=== PATIENT | female | born 1970 | race Caucasian/White ===

== ENCOUNTER 2019-07-17 15:52 | Outpatient (CLI) | payer OTHER, SELFPAY ==
--- NOTE | ~2019-07-17 | MM_ITS ---
EXAMINATION: MM screening [facility] BI w true HISTORY: Screening mammogram TECHNIQUE: Craniocaudal and mediolateral oblique 3-D tomosynthesis images were obtained and synthetic 2-D images were generated. CAD analysis was submitted and interpreted. COMPARISON: 06/20/2018, 05/19/2017, 04/08/2016 BREAST PARENCHYMAL COMPOSITION: There are scattered areas of fibroglandular density. FINDINGS: There is no evidence of suspicious mass, calcification, or architectural distortion to sugg est malignancy in either breast. There has been no suspicious interval change. IMPRESSION: 1. No mammographic evidence of malignancy. 2. Recommend routine screening mammography in one year. BI-RADS Category 1: Negative Reviewed, dictated and finalized at location A. POLISHER
== END 2019-07-17 15:53 | disposition home or self-care (01) ==
LOC: ANHIMG 15:55
PROVIDERS: PCP Internal Medicine; Visit Provider Obstetrics & Gynecology Gynecology
DX: Z12.31 Encounter for screening mammogram for malignant neoplasm of breast (principal)
CPT/HCPCS: 77063; 77067

== ENCOUNTER 2020-08-24 07:57 | Outpatient (CLI) | payer OTHER, SELFPAY ==
--- NOTE | ~2020-08-24 | MM_ITS ---
EXAMINATION: MM screening [facility] BI w true HISTORY: Screening mammogram TECHNIQUE: Craniocaudal and mediolateral oblique 3-D tomosynthesis images were obtained and synthetic 2-D images were generated. CAD analysis was submitted and interpreted. COMPARISON: 05/16/2020, 06/20/2018, 05/19/2017 BREAST PARENCHYMAL COMPOSITION: There are scattered areas of fibroglandular density. FINDINGS: There is no evidence of suspicious mass, calcification, or architectural distortion to sugg est malignancy in either breast. There has been no suspicious interval change. IMPRESSION: 1. No mammographic evidence of malignancy. 2. Recommend routine screening mammography in one year. BI-RADS Category 1: Negative Reviewed, dictated and finalized at location A.
== END 2020-08-24 07:58 | disposition home or self-care (01) ==
LOC: ANHIMG 07:58
PROVIDERS: PCP Internal Medicine; Visit Provider Obstetrics & Gynecology Gynecology
DX: Z12.31 Encounter for screening mammogram for malignant neoplasm of breast (principal)
CPT/HCPCS: 77063; 77067

== ENCOUNTER 2021-10-12 16:23 | Outpatient (CLI) | payer OTHER, SELFPAY ==
--- NOTE | ~2021-10-12 | MM_ITS ---
EXAMINATION: MM screening [facility] BI w true HISTORY: Screening mammogram TECHNIQUE: Craniocaudal and mediolateral oblique 3-D tomosynthesis images were obtained and synthetic 2-D images were generated. CAD analysis was submitted and interpreted. COMPARISON: 08/24/2020, 07/17/2019 BREAST PARENCHYMAL COMPOSITION: There are scattered areas of fibroglandular density. FINDINGS: There is no suspicious mass, calcification, or architectural distortion to suggest malignan cy in either breast. There has been no suspicious interval change. IMPRESSION: 1. No mammographic evidence of malignancy. 2. Recommend routine screening mammography in one year. BI-RADS Category 1: Negative Reviewed, dictated and finalized at location A.
== END 2021-10-12 16:24 | disposition home or self-care (01) ==
PROVIDERS: PCP Internal Medicine; Visit Provider Obstetrics & Gynecology Gynecology
DX: Z12.31 Encounter for screening mammogram for malignant neoplasm of breast (principal)
CPT/HCPCS: 77063; 77067

== ENCOUNTER 2022-12-19 08:06 | Outpatient (CLI) | payer OTHER, SELFPAY ==
--- NOTE | ~2022-12-19 | MM_ITS ---
EXAMINATION: MM screening [facility] BI w true HISTORY: Screening mammogram TECHNIQUE: Craniocaudal and mediolateral oblique 3-D tomosynthesis images were obtained and synthetic 2-D images were generated. CAD analysis was submitted and interpreted. COMPARISON: 10/12/2021, 08/24/2020, 07/17/2019 BREAST PARENCHYMAL COMPOSITION: There are scattered areas of fibroglandular density. FINDINGS: No suspicious mass, calcification, or architectural distortion are identified in either myriam ast to suggest malignancy. There has been no suspicious interval change. IMPRESSION: 1. No mammographic evidence of malignancy. 2. Recommend routine screening mammography in one year. BI-RADS Category 1: Negative Reviewed, dictated and finalized at location A.
== END 2022-12-19 08:07 | disposition home or self-care (01) ==
PROVIDERS: PCP Internal Medicine; Visit Provider Obstetrics & Gynecology Gynecology
DX: Z12.31 Encounter for screening mammogram for malignant neoplasm of breast (principal)
CPT/HCPCS: 77063; 77067

== ENCOUNTER 2024-04-04 15:29 | Outpatient (CLI) | payer OTHER, SELFPAY ==
--- NOTE | ~2024-04-04 | MM_ITS ---
EXAMINATION: MM screening [facility] BI w true HISTORY: Screening TECHNIQUE: Craniocaudal and mediolateral oblique 3-D tomosynthesis images were obtained and synthetic 2-D images were generated. CAD analysis was submitted and interpreted. COMPARISON: Comparison to multiple prior studies sequentially, with oldest reviewed study dated 04/29. BREAST PARENCHYMAL COMPOSITION: Not dense: There are scattered areas of fibroglandular density. FINDINGS: There is no evidence of suspicious mass, calcification, or architectural distortion to sugg est malignancy in either breast. There has been no suspicious interval change. IMPRESSION: 1. No mammographic evidence of malignancy. 2. Recommend routine screening mammography in one year. BI-RADS Category 1: Negative Reviewed, dictated and finalized at location B. ORATION ECOLOGIST
== END 2024-04-04 15:30 | disposition home or self-care (01) ==
PROVIDERS: Visit Provider Obstetrics & Gynecology Gynecology
DX: Z12.31 Encounter for screening mammogram for malignant neoplasm of breast (principal)
CPT/HCPCS: 77063; 77067

== ENCOUNTER 2025-05-15 15:44 | Outpatient (CLI) | payer OTHER, SELFPAY ==
--- OUTSIDE RECORDS SUMMARY | 2024-06-28 03:00 | XMS_ITS ---
Author Organization [facility] [address] [place] [address] Care Team Providers Care Intelligence Analyst Name Role Phone Luis Antonio Alejandra Primary Care Provider Luis Antonio Alejandra MD Unavailable Unavailable Kyle Solares [phone] REASON FOR VISIT nausea/vomiting Encounters Encounter Location Date Provider Diagnosis [facility] [address] [place] [address] 06/28/2024 Kyle Solares Plan Of Treatment Next Appt Details Provider Name:Luis Antonio Alejandra, 11/05/2025 10:30:00 AM, [address], [place], [address], Progress Notes * Debbie LONG LDOB:[birth year] (54 yo F)Acc No.[id number]:06/28/2024 Patient: Zaira DANIELAngeDebbie GIRON Provider: Maggie Solares MD :1970 A ge:53 Y S ex:Female Date:06/28/2024 Address:[address] [facility] Pcp:Luis Antonio Alejandra Subjective: * Chief Complaints: * 1 . Nausea/vomiting. * Medical History: Objective: * Vitals: Assessment: Plan: * Treatment: * Billing Information: * Visit Code: * Procedure Codes: * Electronic signature of Mayo Solares MD on 05/15/2025 at 04:[address] Sign off status: Pending * Provider: Maggie Solares MD Date: 0 06/28/2024 Generated for Teri wetzel/Pierre/Harper on: 1 07/16/2024 04:[address]
--- NOTE | ~2025-05-15 | MM_ITS ---
EXAMINATION: MM screening [facility] BI w true HISTORY: Screening TECHNIQUE: Craniocaudal and mediolateral oblique 3-D tomosynthesis images were obtained and synthetic 2-D images were generated. CAD analysis was submitted and interpreted. COMPARISON: Comparison to multiple prior studies sequentially, with oldest reviewed study dated 08/24/2020. BREAST PARENCHYMAL COMPOSITION: Not dense: There are scattered areas of fibroglandular density. FINDINGS: There is no evidence of suspicious mass, calcification, or architectural distortion to suggest malignancy in either breast. There has been no suspicious interval change. IMPRESSION: 1. No mammographic evidence of malignancy. 2. Recommend routine screening mammography in one year. BI-RADS Category 1: Negative Reviewed, dictated and finalized at location O. UAGE ASSISTANT
--- OUTSIDE RECORDS SUMMARY | 2025-05-15 16:11 | XMS_ITS | Clinical Summary ---
Author Organization [facility] Address [address] [place] [address] Phone Care Team Providers Care Pulvi Mixer Operator Name Role Phone Sudheer Rangel MD Primary Care Provider [phone] Allergies Active Allergy Reactions Criticality Noted Date Comments Codeine Nausea and Vomiting Low 09/28/2016 Meperidine Rash Low 11/08/2018 Morphine Itching Low 11/08/2018 Medications omeprazole/sodiu m bicarbonate (ZEGERID ORAL) Take by mouth daily at bedtime . Active montelukast (SINGULAIR) 10 mg tablet TAKE ONE TABLET DAILY 5 09/04/2018 Active INTROVALE 0.15 mg-30 mcg (91) Tablet, Dose Pack, 3 Months Take 1 Tablet by mouth daily at bedtime . 08/24/2018 Active docusate sodium (COLACE) 60 mg/15 mL syrup Take 50 mg by mouth daily. Active Active Problems Problem Noted Date Diagnosed Date Chronic midline low back pain with right-sided s ciatica 11/06/2018 Social History Tobacco Use Types Packs/Day Years Used Date Smoking Tobacco: Never Smokeless Tobacco: Never Alcohol Use Standard Drinks/Week Comments Never 0 (1 standard drink = 0.6 oz pur e alcohol) Comments No Sex and Gender Information Value Date Recorded Sex Assigned at Not on file Legal Sex Female 9:08 AM CDT Gender Identity Not on file Sexual Orientation Not on file Last Filed Vital Signs Vital Sign Reading Time Taken Comments Blood Pressure 114/81 12/17/2020 9:50 AM CDT Pulse 80 12/17/2020 9:50 AM CDT Temperature 36.8 C (98.2 F) 12/17/2020 9:50 AM CDT Respiratory Rate 20 12/07/2018 4:07 PM CDT Oxygen Saturation 98% 12/07/2018 4:07 PM CDT Inhaled Oxygen Concentration - - Weight 73.5 kg (162 lb) 12/17/2020 9:50 AM CDT Height 162.6 cm (5' 4) 12/17/2020 9:50 AM CDT Body Mass Index 27.81 12/17/2020 9:50 AM CDT Plan of Treatment Health Maintenance Due Date Last Done Comments DTAP/TDAP/TD VACCINES (1 - Tdap) 10/27/1990 HEPATITIS B VACCINES (1 of 3 - 19+ 3-dose series) 10/27/1990 HPV/Cotest (21-29) 10/27/1992 CERVICAL CANCER SCREENING 10/27/2001 HPV/Cotest (30-65) 10/27/2001 PAP SMEAR 10/27/2001 BREAST CANCER SCREENING 2011 COLORECTAL SCREENING 10/27/2016 Colorectal Cancer Screening 10/27/2016 FIT-DNA Q 3 years 10/27/2016 FIT/FOBT Q 1 year 10/27/2016 Flex Sig/CT Colonography Q 5 years 10/27/2016 ZOSTER VACCINE (1 of 2) 10/27/2021 INFLUENZA VACCINE (#1) 2024 COVID-19 Vaccine ( season) 01/27/202506/2020, 06/02/2020 Medical Devices Implanted Type Area Instructor Of Spanish Device Identifier Shelf Expiration Date Model / Serial / Lot Pivox Oblique Lateral Spinal System Interbody Implanted:Qt y: 1 on 12/05/2018 by Eugenio Cordova MD at [facility] Cage N/A: Spine Lumbar 05/25/2023 [id number] / / [id number] Description:All Medtronic ca ges and other spinal hardware was processed on requisition,[id number]. Hemostatic Surgifoam 1gm 1977 - [id number] Implanted:Qt y: 1 on 12/05/2018 by Eugenio oCrdova MD at [facility] Hemostatic N/A: Spine Lumbar J[employer]J- [employer] [id number] 09/25/20201977 / / [id number] Putty Implanted:Qt y: 1 on 12/05/2018 by Eugenio Cordova MD at [facility] Putty N/A: Spine Lumbar 09/28/2020 [id number] / [id number] / Medtronic 7.5 X 50 Screw Implanted:Qt y: 2 on 12/05/2018 by Eugenio Cordova MD at [facility] Screw N/A: Spine Lumbar [employer] [id number] / / LOAD 33, STERILIZED 11/22/2018 Medtronic 7.5 X 45 Screw Implanted:Qt y: 2 on 12/05/2018 by Eugenio Cordova MD at [facility] Screw N/A: Spine Lumbar [employer] [id number] / / LOAD 33, 11/22/18 Medtronic Set Screws (Caps) Implanted:Qt y: 4 on 12/05/2018 by Eugenio Cordova MD at [facility] Screw N/A: Spine Lumbar [employer] [id number] / / LOAD 23, STERILIZED 11/22/2018 Sealant Floseal 5ml [id number] - Old - [id number] Implanted:Qt y: 1 on 12/05/2018 by Eugenio Cordova MD at [facility] Sealant N/A: Spine Lumbar HIGH- BIOSCIENCE 05/01/2020 [id number] / / [id number] Infuse Protein Kit [id number] - [id number] Implanted:Qt y: 1 on 12/05/2018 by Eugenio Cordova MD at [facility] Tissue N/A: Spine Lumbar MEDTRONIC- SOFAMOR DANEK 08/27/2019 [id number] / / [id number] Description:REQ#[id number] Allgrft Magnifuse Pc [id number] - [id number] Implanted:Qt y: 1 on 12/05/2018 by Eugenio Cordova MD at [facility] Tissue N/A: Spine Lumbar [employer] 03/28/2020 [id number] / [id number] / Description:REQ#[id number] Medtronic Voyager [place] Implanted:Qt y: 2 on 12/05/2018 by Eugenio Cordova MD at [facility] N/A: Spine Lumbar [id number] / LOAD 2 / 11/22/18 Insurance RX [employer] Express Advance Directives For more information, please contact: [phone] * Full Code (Latest Code Status on File) Date Activated Date Inactivated Comments 12/05/2018 4:46 PM 12/07/2018 9:31 PM * Full Code Date Activated Date Inactivated Comments 12/05/2018 6:58 AM 12/05/2018 4:46 PM * Full Code Date Activated Date Inactivated Comments 12/05/2018 5:40 AM 12/05/2018 6:57 AM Care Teams Pulvi Mixer Operator Relationship Specialty Start Date End Date Sudheer Rangel MD [address] [place] [id number] PCP - General Internal Medicine 03/16/21
--- OUTSIDE RECORDS SUMMARY | 2025-05-15 16:11 | XMS_ITS | Patient Health Record ---
Author Organization [facility] calvin Address [address] [facility] [address] [place] [address] Care Team Providers Care Dip Brazier Name Role Phone Luis Antonio Alejandra Primary Care Provider Justyn WELCH, Luis Antonio Unavailable Unavailable Kyle Solares Unavailable [phone] Allergies Allergen (clinical drug ingredient) Drug/Non Drug Allergy documented on EMR Reaction Allergy Type Onset Date Status codeine Codeine Unknown Drug Allergy 09/02/2020 Active meperidine Meperidine Unknown Drug Allergy Activ e morphine Morphine Unknown Drug Allergy 09/02/2020 Active Results Component Value Reference Range Notes CBC w auto diff (Not yet rev iewed by provider) Interpretation: Performing Lab:[facility] , [address] [facility] [address] Notes/Report: WBC 7.38 3.80-9.90 K/cumm Hgb 12.9 11.9-15.5 g/dL Hct 39.0 35.6-45.5 % Platelet Ct 293 150-400 K/cumm MPV 9.7 9.1-12.3 fL RBC 4.15 3.90-5.20 M/cumm MCV 94.0 81.3-96.4 fL MCH 31.1 27.1-33.3 pg MCHC 33.1 32.3-35.7 g/dL RDW CV 12.8 11.1-14.9 % RDW SD 43.9 35.7-48.1 fL NRBC Abs Auto 0.00 0.00-0.01 K/cumm Comprehensive metabolic pane l (CMP) (Not yet reviewed by provider) Interpretation: Performing Lab:[facility] , [address] [facility]. [facility] [address] Notes/Report: Sodium 138 135-145 mmol/L Plasma Potassium 4.3 3.3-4.9 mmol/L Chloride 101 97-110 mmol/L Total CO2 23 22-32 mmol/L Anion Gap 14 2-15 mmol/L BUN 14 6-25 mg/dL Creatinine 0.73 0.60-1.10 mg/dL Glucose 82 70-199 mg/dL Interpretive Data Fasting glucose >/= 126 mg/dl is diagnostic for diabetes. Fasting is defined as no caloric intake for at least 8 hours. Fasting glucose between 100 mg/dl to 125 mg/dl is diagnostic of prediabetes. In a patient with classic symptoms of hyperglycemia or hyperglycemic crisis, a random glucose >/= 200 mg/dl is diagnostic for diabetes. In the absence of unequivocal hyperglycemia, results should be confirmed by repeat testing. The classification and Diagnosis of Diabetes Diabetes Care 2021; 46: S19-S40. Current interpretive data was last revised 2022. Total Calcium 9.1 8.5-10.3 mg/dL Total Bilirubin 0.2 0.1-1.2 mg/dL Plasma Total Protein 6.8 6.5-8.5 g/dL Albumin 3.9 3.5-5.0 g/dL Alkaline Phosphatase 31 40-130 Units/L ALT 11 7-45 Units/L AST 24 10-45 Units/L Hemoglobin A1C (Not yet revi ewed by provider) Interpretation: Performing Lab:[facility] , [address] [facility]. [facility] [address] Notes/Report: Hemoglobin A1C 5.6 4.0-5.6 % Est Average Glucose 114 The ADA recommends reporting an estimated Average Glucose (eAG) with all Hemoglobin A1c results using the equation derived from a study of 507 normal and diabetic adults. Minority populations were underrepresented and children were not included. (Diabetes Care 31:3332-7495, 2008). The eAG is not equivalent to a fasting glucose. Lipid Panel (Not yet reviewe d by provider) Interpretation: Performing Lab:[facility] , [address] [facility]. [facility] [address] Notes/Report: Cholesterol 167 30-199 mg/dL Interpretive Data Ages < or = 19 years Acceptable: <170 mg/dL Borderline high: 170-199 mg/dL High: >or= 200 mg/dL Ages > or = 20 years Desirable: <200 mg/dL Borderline high: 200-239 mg/dL High: >or= 240 mg/dL Literature References: 1. Expert Panel on Integrated Guidelines for Cardiovascular Health and Risk Reduction in Children and Adolescents. Pediatrics 2011;128:S213 2. NCEP Expert Panel. Circulation 2004;110:227 Current Interpretive Data was last revised on 2018. Triglycerides 136 <=149 mg/dL Interpretive Data Ages < or = 9 years Acceptable: <75 mg/dL Borderline high: 75-99 mg/dL High: >or= 100 mg/dL Ages 10 to 20 years Acceptable: <90 mg/dL Borderline high: 90-129 mg/dL High: >or= 130 mg/dL Ages > or = 20 years Desirable: <150 mg/dL Borderline high: 150-199 mg/dL High: 200-499 mg/dL Very high: >or= 499 mg/dL Literature References: 1. Expert Panel on Integrated Guidelines for Cardiovascular Health and Risk Reduction in Children and Adolescents. Pediatrics 2011;128:S213 2. NCEP Expert Panel. Circulation 2004;110:227 Current Interpretive Data was last revised on 2018. HDL Cholesterol 37 >=40 mg/dL Interpretive Data Ages < or = 19 years Acceptable: >45 mg/dL Borderline low: 40-45 mg/dL Low: <40 mg/dL Ages > or = 20 years Desirable: >or= 60 mg/dL Low: <40 mg/dL Literature References: 1. Expert Panel on Integrated Guidelines for Cardiovascular Health and Risk Reduction in Children and Adolescents. Pediatrics 2011;128:S213 2. NCEP Expert Panel. Circulation 2004;110:227 Current Interpretive Data was last revised on 2018. LDL Cholesterol, calculated 106 <=129 mg/dL Interpretive Data Ages < or = 19 years Acceptable: <110 mg/dL Borderline high: 110-129 mg/dL High: >or= 130 mg/dL Ages > or = 20 years Optimal: <100 mg/dL Near optimal: 100-129 mg/dL Borderline high: 130-159 mg/dL High: >160 mg/dL Calculated using the Vivas LDL-C estimating equation. This equation was implemented on 2024. Prior to this date LDL-C was estimated using the Friedewald equation. Literature References: 1. Expert Panel on Integrated Guidelines for Cardiovascular Health and Risk Reduction in Children and Adolescents. Pediatrics 2011;128:S213 2. NCEP Expert Panel. Circulation 2004;110:227 3. Ortega Horan et al. LEV Cardiol. 2019September 26;5(5):540-548. doi: 10.1001/jamacardio.2019.0 013 Current Interpretive Data was last revised on 2024. Non-HDL Cholesterol 130 Interpretive Data Ages < or = 19 years Acceptable: <120 mg/dL Borderline high: 120-144 mg/dL High: >145 mg/dL Ages > or = 20 years When triglycerides are >200 mg/dL, Non-HDL cholesterol is a secondary target of therapy with treatment goals that are 30 mg/dL greater than the LDL cholesterol target. Literature References: 1. Expert Panel on Integrated Guidelines for Cardiovascular Health and Risk Reduction in Children and Adolescents. Pediatrics 2011;128:S213 2. NCEP Expert Panel. Circulation 2004;110:227 Current Interpretive Data was last revised on 2018. Cholesterol/HDL ratio 5 T3 Free (Not yet reviewed by provider) Interpretation: Performing Lab:[facility] , [address] [place] [address]. [facility] [address] Notes/Report: Free T3 3.5 2.0-4.4 pg/mL TSH Reflex FT4 (Not yet revi ewed by provider) Interpretation: Performing Lab:[facility] , [address] [place] [address]. [facility] [address] Notes/Report: TSH ([place]) 1.38 0.30-4.20 mcIUnit/mL UA, reflex Micro to Culture (Not yet reviewed by provider) Interpretation: Performing Lab:[facility] , [address] [place] [address]. [facility] [address] Notes/Report: Color, Ur Yellow Yellow Clarity, Ur Turbid Clear Spec Grav, Ur 1.034 1.003-1.03 pH, Ur 6.5 disturbances, and renal tubular function. pH may affect urinary stone formation. For example, urine pH below 6.0 may help reduce the tendency for calcium phosphate stones and pH greater than 6.0 may reduce the tendency for uric acid stone formation. Source: [facility] [employer] Current Interpretive Data was last revised on 2017 Interpretive Data ?Urine pH is affected by diet, medications, systemic acid-base Protein, Ur Ql Trace Negative Glucose, Ur Ql Negative Negative Ketones, Ur Negative Negative Bilirubin, Ur Negative Negative Blood, Ur Negative Negative Urobilinogen, Ur <2.0 <2.0 mg/dL Nitrite, Ur Negative Negative Leukocyte Esterase, Ur 3+ Negative UA reflex comment See Below Reflex to microscopic UA will be performed. Differential Automated (Not yet reviewed by provider) Interpretation: Performing Lab:[facility] , [address] [facility] [address] Notes/Report: Neut Abs 4.50 1.50-6.50 K/cumm ImmGran Abs 0.02 0.00-0.10 K/cumm Lymphocyte Abs 2.05 0.80-3.30 K/cumm [place] Abs 0.72 0.20-0.80 K/cumm Eos Abs 0.06 0.00-0.50 K/cumm Baso Abs 0.03 0.00-0.10 K/cumm Neut Pct 60.9 Interpretive Data Percent cell count reference ranges are not reported, since discordance with absolute values may lead to misinterpretation of CBC data. Current Interpretive Data was last revised on 2017. ImmGran Pct 0.3 Interpretive Data Percent cell count reference ranges are not reported, since discordance with absolute values may lead to misinterpretation of CBC data. Current Interpretive Data was last revised on 2017. Lymph Pct 27.8 Interpretive Data Percent cell count reference ranges are not reported, since discordance with absolute values may lead to misinterpretation of CBC data. Current Interpretive Data was last revised on 2017. [place] Pct 9.8 Interpretive Data Percent cell count reference ranges are not reported, since discordance with absolute values may lead to misinterpretation of CBC data. Current Interpretive Data was last revised on 2017. Eos Pct 0.8 Interpretive Data Percent cell count reference ranges are not reported, since discordance with absolute values may lead to misinterpretation of CBC data. Current Interpretive Data was last revised on 2017. Baso Pct 0.4 Interpretive Data Percent cell count reference ranges are not reported, since discordance with absolute values may lead to misinterpretation of CBC data. Current Interpretive Data was last revised on 2017. Culture, Urine-[facility] (Not yet reviewed by provider) Interpretation: Performing Lab:[facility] , [address] [place] [address]. [facility] [address] Notes/Report: Specimen source: UR Urine culture reflexed based upon urinalysis results. C URINE SEE BELOW C URINE Final Report C URINE Growth indicates contamination with gram-positive ayleen. UA Micro (All Sites) (Not ye t reviewed by provider) Interpretation: Performing Lab:[facility] , [address] [place] [address]. [place] [address] Notes/Report: WBC, Ur 11-20 0-5 /HPF RBC, Ur 0-2 0-2 /HPF Epithl Squam, Ur 6-10 0-5 /HPF Suggestive of contamination. Consider recollection by clean catch. Bacteria, Ur 1+ Culture reflex comment See Below Refle x to urine culture will be performed. Mucous Ur Present eGFR (Not yet reviewed by pennie orozco) Interpretation: Performing Lab:[facility] , [address] [place] [address]. [facility] [address] Notes/Report: eGFR >90 >=60 mL/min/1.73 m2 Interpretive Data Reference Interval Normal >/= 90 mL/min/1.73m2 Mildly decreased* 60 - 89 mL/min/1.73m2 Mildly to moderately decreased 45 - 59 mL/min/1.73m2 Moderately to severely decreased 30 - 44 mL/min/1.73m2 Severely decreased 15 - 29 mL/min/1.73m2 Kidney Failure < 15 mL/min/1.73m2 *Relative to young adult level Estimated glomerular filtration rate is determined by the 2020 CKD-EPI equation recommended by the National Kidney Foundation (A Unifying Approach to GFR Estimation: Recommendations of the NKF-ASK Task Force on Reassessing the Inclusion of Race in Diagnosing Kidney Disease, JASN 202). The CKD-EPI equation should not be used for patients with unstable renal function and has not been validated in children and those over 70. Current interpretive data was last reviewed 2021. Reason For Referral No Information Medications Medication SIG (Take, Route, Frequency, Duration) Notes Start Date End Date Status Jolessa 0.15 mg-30 mcg (91) take 1 tablet by oral route once daily oral 1 *Pick strength-form from [employer] for eRX* Active Montelukast Sodium 10 MG 1 tablet Orally Once a day; Duration: 30 days Active Zegerid oral *Pick strength-form from [email or web address] for eRX* Active Social History Tobacco Use: Social History Observation Description Date Details (start date - stop date) Never Smoker NA - NA Tobacco Control (Standard) Question Answer Notes Tobacco use: Nonsmoker Vital Signs Heart Rate 83 /min 11/04/2024 G Temperature 98.0 degrees Fahrenheit 11/04/2024 G Height-cm 165.10 cm 11/04/2024 G Oximetry 97 % 11/04/2024 G Blood pressure diastolic 72 mm Hg 11/04/2024 G Weight-kg 80.65 kg 11/04/2024 G Height 65 in 11/04/2024 G Blood pressure systolic 118 mm Hg 11/04/2024 G Weight 177.8 lbs 11/04/2024 G BMI 29.58 kg/m2 11/04/2024 G Encounters Encounter Location Date Provider Diagnosis [facility] [address] [place] [address] 11/04/2024 Luis Antonio Alejandra Annual physical exam Z00.00 Assessments Encounter Date Diagnosis (ICD Code) Assessment Notes Treatment Notes Treatment Clinical Notes Section Notes 11/04/2024 Annual physical exam (ICD-10 - Z00.00) Plan Of Treatment Pending Test Test Name Order Date Hemoglobin A1c 11/02/2023 CBC With Differential/Platelet 4 T4 and TSH 11/02/2023 Lipid Panel And Chol/HDL Ratio 4 Chem-Comprehensive 11/02/2023 Urinalysis IH 11/02/2023 CBC w auto diff 11/04/2024 Comprehensive metabolic panel (CMP) 01/2025 Differential Automated 11/04/2024 Hemoglobin A1C 11/04/2024 Lipid Panel 11/04/2024 T3 Free 11/04/2024 TSH Reflex FT4 11/04/2024 UA, reflex Micro to Culture 11/04/2024 Culture, Urine-cvs 11/04/2024 UA Micro (All Sites) 11/04/2024 eGFR 11/04/2024 Next Appt Details Provider Name:Luis Antonio Alejandra, 11/05/2025 10:30:00 AM, [address] [facility] [address], [place], [address], Insurance Providers Payer Name Payer Address Payer Phone Subscriber Number Group Number Insured Name Patient Relationship to Insured Coverage Start Date Coverage End Date [facility] [address] [address] [place] [address] [id number] Debbie Nieves Self - patient is the insured Medical (General) History Surgical History Surgery Date(Month/Year) Spinal fusion; 2020-09-02 Ceasarean section; 2020-09-02 Hospitalization History Reason Date(Month/Year)
--- OUTSIDE RECORDS SUMMARY | 2025-05-15 16:11 | XMS_ITS | Patient Health Record ---
Author Organization [facility] Address [address] [place] [address] Care Team Providers Care Cardiac Technologist Name Role Phone HERMAN JOHNSON Unavailable [phone] CAYLA PADILLA Unavailable Unavailable Allergies Allergen (clinical drug ingredient) Drug/Non Drug Allergy documented on EMR Reaction Allergy Type Onset Date Status codeine Codeine (uncoded) Unknown Allergy Ac tive morphine Morphine (uncoded) Unknown Allergy A ctive meperidine Demerol Unknown Drug Allergy Active Reason For Referral No Information Medications Medication SIG (Take, Route, Frequency, Duration) Notes Start Date End Date Status Zanaflex 4 MG 1 tablet as needed O rally Three times a day Active Tylenol Extra Strength 500 MG 1 tablet as needed Orally every 6 hrs Active Aleve 220 MG 1 tablet with food o r milk as needed Orally every 12 hrs Active Zegerid OTC 20-1100 MG 1 capsule on an e mpty stomach Orally Once a day Active Jolessa 0.15-0.03 MG 1 tablet Orally Once a day Active Problems Problem Type SNOMED Code ICD Code Onset Dates Problem Status W/U Status Risk Notes Problem Lumbar radiculopathy (998153955) Lumbar radiculopathy (M54.16) Active confirmed Problem Pain in limb (39876426) Pain of right leg (M79.604) Active confirmed Plan Of Treatment No Information Insurance Providers Payer Name Payer Address Payer Phone Subscriber Number Group Number Insured Name Patient Relationship to Insured Coverage Start Date Coverage End Date [facility] [address] [address] [place] [address] [id number] RAIN LONG Self - patient is the insured Medical (General) History Medical History History ICD Code GERD Surgical History Surgery Date(Month/Year) D&C 01/27/11 C sections 99'02'05'
--- OUTSIDE RECORDS SUMMARY | 2025-05-15 16:11 | XMS_ITS | Encounter Summary ---
Author Organization [facility] Address [address] [place] [address] Care Team Providers Care Hair Machine Operator Name Role Phone Frank Sevilla MD Primary Care Provider [phone] Encounter Details Date Type Department Care Team (Late st Contact Info) Description 11/25/2024 Lab Requisition [facility] - DermPath Lab [address] [facility] [place] [address] Yani Cohn MD [address] [facility] [address] [place] [id number] Social History Tobacco Use Types Packs/Day Years Used Date Smoking Tobacco: Never Smokeless Tobacco: Never Comments No Sex and Gender Information Value Date Recorded Sex Assigned at Not on file Legal Sex Female 9:04 AM CDT Gender Identity Not on file Sexual Orientation Not on file documented as of this encounter Plan of Treatment Not on file documented as of this encounter Procedures Procedure Name Priority Date/Time Associated Diagnosis Comments DERMATOPATHOLOGY Routine 11/25/2024 3:33 AM CDT documented in this encounter Results * DERMATOPATHOLOGY (11/25/2024 3:33 AM CDT) Case Report Dermatopathology Report Case: [id number] Authorizing Provider: Yani Cohn MD Collected: 11/25/2024 03:33 AM Ordering Location: [facility] - Received: 11/26/2024 10:10 AM DermPath Lab Pathologist: Kaity Monson MD Specimen: Skin, right shoulder 07/02/202 5 6:14 PM CDT DERMATOPATHOLOGY LABORATORY Final Diagnosis Specimen A. SKIN, right shoulder: BASAL CELL CARCINOMA, NODULAR TYPE (C44.612) 6:14 PM CDT DERMATOPATHOLOGY LABORATORY at 1814 CDT Clinical History R/O BCC 6:14 PM CDT DERMATOPATHOLOGY LABORATORY Gross Description Specimen A: Received is one formalin filled container labeled with the patient's name and designated right shoulder. The specimen consists of a shave biopsy measuring [id number] mm. Jar 0. 6:14 PM CDT DERMATOPATHOLOGY LABORATORY Microscopic Description Specimen A. SKIN, right shoulder: Within the dermis there are aggregates of basaloid cells with a high nuclear to cytoplasmic ratio and peripheral palisading. 6:14 PM CDT DERMATOPATHOLOGY LABORATORY Disclaimer An external and internal positive and negative controls are appropriate for the histochemical, immunohistochemical and immunofluorescence stain(s) in this case (if any), except where stated explicitly. The performance characteristics of the stain(s) cited in this report were developed and its performance characteristic determined by the Dermatopathology Laboratory at [facility], directed by Dr. Donna Rios. These tests need not be, and therefore are not, approved by the [place] Food and Drug Administration. The tests are used for clinical purposes. Billing Codes Specimen Charges Stain Charges 59982 1 6:14 PM CDT DERMATOPATHOLOGY LABORATORY Embedded Images 6:14 PM CDT DERMATOPATHOLOGY LABORATORY Pathology/Cytolo gy TISSUE SPECIMEN FROM SKIN / Unknown 11/25/2024 3:33 AM CDT 11/26/2024 10:10 AM CDT Yani Cohn MD LAB - PATHOLOGY/CYTOLOGY CHIO IBARRA Final Result DERMATOPATHOLOGY LABORATORY [facility] - Department of Dermatology [address] [phone] documented in this encounter Visit Diagnoses Not on filedocumented in this encounter Care Teams Hair Machine Operator Relationship Specialty Start Date End Date Frank Sevilla MD [address] [place] [address] PCP - General Internal Medicine 09/28/16 documented as of this encounter
--- OUTSIDE RECORDS SUMMARY | 2025-05-15 16:11 | XMS_ITS | Clinical Summary ---
Author Organization [facility] Address [address] [place] [address] Care Team Providers Care Large Animal Veterinarian Name Role Phone Frank Sevilla MD Primary Care Provider [phone] Source Comments [facility],non-owned Affiliates and Associated Physician Practices is amultiple site organization consisting of ambulatory clinics and hospital sitesin [place], [place], [place] and [place]. This disclosure is being madepursuant to the Care Everywhere program and may not contain all information available regarding this patient. Last updated 18.[facility] Allergies Active Allergy Reactions Criticality Noted Date Comments Codeine 09/28/2016 Meperidine 09/28/2016 Morphine 09/28/2016 Medications * Be aware that medications may not be up to date on this document. Alwaysverify current medications with the patient. Levonorgest-Eth Estrad 91-Day (JOLESSA PO) Active Active Problems No known active problems Social History Tobacco Use Types Packs/Day Years Used Date Smoking Tobacco: Never Smokeless Tobacco: Never Comments No Sex and Gender Information Value Date Recorded Sex Assigned at Not on file Legal Sex Female 9:04 AM CDT Gender Identity Not on file Sexual Orientation Not on file Last Filed Vital Signs Vital Sign Reading Time Taken Comments Blood Pressure 118/64 09/28/2016 9:58 AM CDT Pulse 71 01/03/2018 4:42 PM CDT Temperature 37.1 C (98.7 F) 01/03/2018 4:42 PM CDT Respiratory Rate 19 01/03/2018 4:42 PM CDT Oxygen Saturation 98% 01/03/2018 4:42 PM CDT Inhaled Oxygen Concentration - - Weight 62.6 kg (138 lb) 01/03/2018 4:42 PM CDT Height 162.6 cm (5' 4) 01/03/2018 4:42 PM CDT Body Mass Index 23.69 01/03/2018 4:42 PM CDT Plan of Treatment Health Maintenance Due Date Last Done Comments COLOGUARD (AGES 45-75) - COL ON CA SCREENING 1971 COLON MONITORING 1971 COLONOSCOPY - COLON CA SCREENING 1971 CT COLONOGRAPHY - COLON CA SCREENING 1971 Colorectal Cancer Screening 1971 FIT - COLON CA SCREENING 1971 FLEX SIG - COLON CA SCREENING 1971 LIPID TESTING 1971 MAMMOGRAM 1971 HIV SCREENING 10/27/1986 HEPATITIS C SCREENING 10/23/1989 DTAP/TDAP/TD VACCINES (1 - Tdap) 10/27/1990 HEPATITIS B VACCINE (1 of 3 - 19+ 3-dose series) 10/27/1990 PAP SMEAR 10/27/1992 PNEUMOCOCCAL VACCINE 50+ (1 of 1 - PCV) 10/27/2021 ZOSTER VACCINE (1 of 2) 10/27/2021 DEPRESSION SCREENING 05/29/2024 COVID-19 VACCINE (1 - 2024-2 6 season) 2025 INFLUENZA VACCINE (#1) 2025 HIB VACCINE Aged Out No longer eligi ble based on patient's age to complete this topic HPV VACCINE Aged Out No longer eligi ble based on patient's age to complete this topic MENINGOCOCCAL (Group B) VACC INE SHARED DECISION-MAKING Aged Out No longer eligibl e based on patient's age to complete this topic MENINGOCOCCAL GROUPS A/C/Y/W VACCINE Aged Out No longer eligible b ased on patient's age to complete this topic Insurance [facility] Care Teams Large Animal Veterinarian Relationship Specialty Start Date End Date Frank Sevilla MD [address] [place] [address] PCP - General Internal Medicine 09/28/16
== END 2025-05-15 15:45 | disposition home or self-care (01) ==
LOC: ANHFOHIMG 15:46
PROVIDERS: Visit Provider Obstetrics & Gynecology Gynecology
DX: Z12.31 Encounter for screening mammogram for malignant neoplasm of breast (principal)
CPT/HCPCS: 77063; 77067